=== PATIENT | male | born 1995 | race Caucasian/White ===

== ENCOUNTER → 2021-09-03 | Outpatient (CLI) | payer BC ==
[2021-09-03 10:10] LABS: CLARITY URINE CLEAR (CLEAR); COLOR URINE YELLOW (YELLOW); KETONES URINE NEGATIVE (NEGATIVE); LEUKOCYTE ESTERASE URINE NEGATIVE (NEGATIVE); NITRITE URINE NEGATIVE (NEGATIVE); OCCULT BLOOD URINE NEGATIVE (NEGATIVE); PH URINE 6.5 (4.5-8.0); PROTEIN URINE NEGATIVE (NEGATIVE); SPECIFIC GRAVITY URINE 1.011 (1.005-1.030)
[2021-09-03 10:13] LABS: BASOPHILS % 0.4 % (0.0-2.0); EOSINOPHILS % 2.2 % (0.0-5.0); HEMATOCRIT. 42.9 % (42.0-52.0); HEMOGLOBIN. 14.9 g/dL (14.0-18.0); LYMPHOCYTES % 24.5 % (20.0-50.0); MEAN CORPUSCULAR HEMOGLOBIN 29.3 pg (28.0-32.0); MEAN CORPUSCULAR VOLUME 84.5 fL (80.0-94.0); MEAN PLATELET VOLUME 8.4 fl (7.4-10.4); MONOCYTES % 9.9 % (2.0-8.0); PLATELET 253 x1000/uL (130-400); RED BLOOD CELL COUNT 5.08 mill/uL (4.7-6.1); RED CELL DISTRIBUTION WIDTH 12.7 % (11.6-14.6)
[2021-09-03 10:14] LABS: CHLORIDE 107 mEq/L (98-107)
[2021-09-03 10:23] LABS: LDL CHOLESTEROL 91 mg/dL (5-100)
[2021-09-03 10:24] LABS: HDL CHOLESTEROL 39 mg/dL (40-59)
== END | disposition home or self-care (01) ==
LOC: US 08:51
PROVIDERS: ATTEND Internal Medicine
DX: R10.32 Left lower quadrant pain (principal); N50.89 Other specified disorders of the male genital organs
CPT/HCPCS: 36415; 76870; 80053; 80061; 81003; 82306; 83036; 84153; 84443; 85025; 93976; G0103